=== PATIENT | female | born 1995 | race African-American/Black ===

== ENCOUNTER 2020-08-05 16:01 | Emergency (ER) | payer BC, OTHER ==
[~2020-08-05] VITALS: Ht 165.1 cm; Wt 113.4 kg
[2020-08-05 17:05] LABS: BILIRUBIN,URINE NEGATIVE (NEGATIVE); CLARITY,URINE CLEAR (CLEAR); COLOR,URINE YELLOW (YELLOW); KETONES,URINE NEGATIVE (NEGATIVE); LEUKOCYTE ESTERASE ,URINE NEGATIVE (NEGATIVE); NITRITE,URINE NEGATIVE (NEGATIVE); PROTEIN,URINE DIPSTICK NEGATIVE (NEGATIVE); URINE UROBILINOGEN 0.2 mg/dL (0.2 - 1)
[2020-08-05 17:17] LABS: BACTERIA,URINE RARE /HPF; EPITHELIAL CELLS,URINE MODERATE /LPF
[2020-08-05 17:55] LABS: BASOPHILS % 0.1 % (0.0-1.0); EOSINOPHILS # (AUTO) 0.1 (0.0-0.4); EOSINOPHILS % 0.9 % (0.0-6.0); HEMATOCRIT 37.8 % (34.2-44.1); HEMOGLOBIN 12.4 g/dL (12.0-16.0); LYMPHOCYTES # (AUTO) 2.4 (1.0-3.2); LYMPHOCYTES % 30.7 % (18.0-39.1); MEAN CORPUSCULAR HEMOGLOBIN 25.7 pg (28-32); MEAN CORPUSCULAR HGB CONC 32.8 g/dL (31-35); MEAN CORPUSCULAR VOLUME 78.4 fL (81-99); MONOCYTES % 12.2 % (4.4-11.3); NEUTROPHILS # (AUTO) 4.4 (2.1-6.9); NEUTROPHILS % 55.8 % (38.7-80.0); PLATELET COUNT 305 x10e3/uL (140-360); RED BLOOD COUNT 4.82 x10e6/uL (3.6-5.1); RED CELL DISTRIBUTION WIDTH 14.6 % (11.7-14.4)
[2020-08-05 18:12] LABS: ANION GAP 12.8 mmol/L (8-16); BLOOD UREA NITROGEN < 5 mg/dL (7-26); BUN/CREATININE RATIO 7 (6-25); CALCIUM 9.4 mg/dL (8.4-10.2); CARBON DIOXIDE 21 mmol/L (22-29); CHLORIDE 105 mmol/L (98-107); CREATININE, SERUM 0.72 mg/dL (0.57-1.11); EST GLOMERULAR FILTRATION RATE > 60 ML/MIN (60-); GLUCOSE 70 mg/dL (74-118); POTASSIUM 3.8 mmol/L (3.5-5.1); SODIUM 135 mmol/L (136-145)
--- NOTE | 2020-08-05 19:04 | Diagnostic Imaging Report ---
EXAM: Obstetric Pelvic Ultrasound INDICATION: Pelvic pain COMPARISON: None TECHNIQUE: Transabdominal and transvaginal evaluation of the pelvis was performed in the transverse and longitudinal planes. CLINICAL HISTORY: 24 year old G1, P0; last menstrual period: 05/01/2020 FINDINGS: Uterus: Orientation: Normal Size: 13.6 x 7.2 x 9.8 cm, gravid Mass: None Cervix: Normal Gestational Sac: Location: Intrauterine Appearance: Normal in contour Subchorionic hemorrhage: None Embryo/Fetus: [place] rump length: 6.6 cm Estimated sonographic GA: 13 weeks, 0 days Cardiac activity: 161 bpm Right ovary: Not visualized. Left ovary: Not visualized. Cul-de-sac: No free fluid IMPRESSION: Viable intrauterine with gestational age 13 weeks, 0 days by CRL and documented heart rate of 161 BPM.. Signed by: Dr. Silvino Burris M.D. on 08/05/2020 7:01 PM
--- NOTE | 2020-08-05 19:25 | Emergency Department Note ---
History of Present Illnes History of Present Illness Chief Complaint: Genitourinary History of Present Illness This is a 24 year old female N FROM HOME WITH COMPLAINTS OF LOWER ABDOMINAL PAIN AND CRAMPING X 4 DAYS; STATES IT IS WORSE WHEN SHE URINATES. PATIENT RATES PAIN 9/10. PATIENT ALERT AND ORIENTED, RESP EVEN AND NONLABORED, APPEARS IN NO DISTRESS, AMBULATORY WITHOUT ASSISTANCE, DENIES VAGINAL BLEEDING OR DISCHARGE, LMP 05/01/2020. Historian: Patient Arrival Mode: Car Onset (how long ago): day(s) (4) Past Medical/Family History Physician Review I have reviewed the patient's past medical and family history. Any updates have been documented here. Past Medical History Recent Fever: No Clinical Suspicion of Infectio: No New/Unexplained Change in Ment: No Past Medical History: None Past Surgical History: None Social History Smoking Cessation: Never Smoker Alcohol Use: None Any Illegal Drug Use: No Family History Family history of heart diseas: No Review of Systems Review of Systems Constitutional: Reports no symptoms EENTM: Reports no symptoms Cardiovascular: Reports no symptoms Respiratory: Reports no symptoms Gastrointestinal: Reports as per HPI Genitourinary: Reports no symptoms Musculoskeletal: Reports no symptoms Integumentary: Reports no symptoms Neurological: Reports no symptoms Psychological: Reports no symptoms Endocrine: Reports no symptoms Hematological/Lymphatic: Reports no symptoms Physical Exam Related Data Allergies: Coded Allergies: No Known Allergies (Unverified , 08/05/20) Triage Vital Signs Vital Signs Date Time Temp Pulse Resp B/P (MAP) Pulse Ox O2 Delivery O2 Flow Rate FiO2 08/05/20 16:27 99.3 91 16 117/58 100 Room Air Vital signs reviewed: Yes Physical Exam CONSTITUTIONAL Constitutional: Present well-developed, Present well-nourished; Absent distressed HENT HENT: Present normocephalic, Present atraumatic, Present oropharynx clear/moist, Present nose normal HENT L/R: Present left ext ear normal, Present right ext ear normal EYES Eyes: Reports PERRL, Reports conjunctivae normal NECK Neck: Present ROM normal PULMONARY Pulmonary: Present effort normal, Present breath sounds normal CARDIOVASCULAR Cardiovascular: Present regular rhythm, Present heart sounds normal, Present capillary refill normal, Present normal rate GASTROINTESTINAL Abdominal: Present soft, Present nontender, Present bowel sounds normal GENITOURINARY Genitourinary: Present exam deferred SKIN Skin: Present warm, Present dry MUSCULOSKELETAL Musculoskeletal: Present ROM normal NEUROLOGICAL Neurological: Present alert, Present oriented x 3, Present no gross motor or sensory deficits PSYCHOLOGICAL Psychological: Present mood/affect normal, Present judgement normal Results Laboratory Result Diagram: 08/05/20 1745 08/05/20 1745 Laboratory Laboratory Tests Test 08/05/20 17:45 08/05/20 16:34 White Blood Count 7.81 x10e3/uL (4.8-10.8) Red Blood Count 4.82 x10e6/uL (3.6-5.1) Hemoglobin 12.4 g/dL (12.0-16.0) Hematocrit 37.8 % (34.2-44.1) Mean Corpuscular Volume 78.4 fL (81-99) Mean Corpuscular Hemoglobin 25.7 pg (28-32) Mean Corpuscular Hemoglobin Concent 32.8 g/dL (31-35) Red Cell Distribution Width 14.6 % (11.7-14.4) Platelet Count 305 x10e3/uL (140-360) Neutrophils (%) (Auto) 55.8 % (38.7-80.0) Lymphocytes (%) (Auto) 30.7 % (18.0-39.1) Monocytes (%) (Auto) 12.2 % (4.4-11.3) Eosinophils (%) (Auto) 0.9 % (0.0-6.0) Basophils (%) (Auto) 0.1 % (0.0-1.0) Neutrophils # (Auto) 4.4 (2.1-6.9) Lymphocytes # (Auto) 2.4 (1.0-3.2) Monocytes # (Auto) 1.0 (0.2-0.8) Eosinophils # (Auto) 0.1 (0.0-0.4) Basophils # (Auto) 0.0 (0.0-0.1) Absolute Immature Granulocyte (auto 0.02 x10e3/uL (0-0.1) Sodium Level 135 mmol/L (136-145) Potassium Level 3.8 mmol/L (3.5-5.1) Chloride Level 105 mmol/L (98-107) Carbon Dioxide Level 21 mmol/L (22-29) Anion Gap 12.8 mmol/L (8-16) Blood Urea Nitrogen < 5 mg/dL (7-26) Creatinine 0.72 mg/dL (0.57-1.11) Estimat Glomerular Filtration Rate > 60 ML/MIN (60-) BUN/Creatinine Ratio 7 (6-25) Glucose Level 70 mg/dL (74-118) Calcium Level 9.4 mg/dL (8.4-10.2) Human Chorionic Gonadotropin, Quant 80707.02 mIU/mL (0-10) Urine Color Yellow (YELLOW) Urine Clarity Clear (CLEAR) Urine pH 5.5 (5 - 7) Urine Specific [place] 1.010 (1.010-1.025) Urine Protein Negative (NEGATIVE) Urine Glucose (UA) Negative (NEGATIVE) Urine Ketones Negative (NEGATIVE) Urine Blood Negative (NEGATIVE) Urine Nitrite Negative (NEGATIVE) Urine Bilirubin Negative (NEGATIVE) Urine Urobilinogen 0.2 mg/dL (0.2 - 1) Urine Leukocyte Esterase Negative (NEGATIVE) Urine RBC None /HPF (0-5) Urine WBC None /HPF (0-5) Urine Epithelial Cells Moderate /LPF (NONE) Urine Bacteria Rare /HPF (NONE) Lab results reviewed: Yes Imaging Impressions Patient Name: ABILIO LYNN MR #: [id number] : 1995 Age/Sex: 24/F Req #: [id number] Adm Physician: Ordered by: JOSE MACIAS DO Report #: [id number] Location: ER Room/Bed: Procedure: [id number] US/US OB 1st TRIM SINGLE GEST Exam Date: 08/05/20 Exam Time: 1806 REPORT STATUS: Signed EXAM: Obstetric Pelvic Ultrasound INDICATION: Pelvic pain COMPARISON: None TECHNIQUE: Transabdominal and transvaginal evaluation of the pelvis was performed in the transverse and longitudinal planes. CLINICAL HISTORY: 24 year old G1, P0; last menstrual period: 05/01/2020 FINDINGS: Uterus: Orientation: Normal Size: 13.6 x 7.2 x 9.8 cm, gravid Mass: None Cervix: Normal Gestational Sac: Location: Intrauterine Appearance: Normal in contour Subchorionic hemorrhage: None Embryo/Fetus: [place] rump length: 6.6 cm Estimated sonographic GA: 13 weeks, 0 days Cardiac activity: 161 bpm Right ovary: Not visualized. Left ovary: Not visualized. Cul-de-sac: No free fluid IMPRESSION: Viable intrauterine with gestational age 13 weeks, 0 days by CRL and documented heart rate of 161 BPM.. Signed by: Dr. Janessa Burris M.D. on 08/05/2020 7:01 PM Dictated By: JANESSA BURRIS MD 00 Transcribed By: LUCY on 08/05/201900 COPY TO: JOSE MACIAS, ~ Assessment & Plan Medical Decision Making MDM PT WITH INTERMITTENT PELVIC CRAMPING FOR 4 DAYS UA, PELVIC US ORDERED TO EVAL FOR UTI, VIABLE IUP Assessment & Plan Final Impression: (1) Discomfort during Depart Disposition: HOME, SELF-CARE Last Vital Signs Date Time Temp Pulse Resp B/P (MAP) Pulse Ox O2 Delivery O2 Flow Rate FiO2 08/05/20 16:27 99.3 91 16 117/58 100 Room Air RACHAEL ABAD MD Aug 05, 2020 19:25
--- OUTSIDE RECORDS SUMMARY | 2020-08-06 10:32 | XMS REPORT | Continuity of Care Document ---
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 Role Phone [employer] Unavailable Un available Problems Problem Status Onset Date Classification Date Reported Comments Source DR NOLAND Active 06/22/2020 [facility] Abnormal uterine and vaginal bleeding, unspecified 07/05/2018 01/22/2019 [facility] Urinary tract infection, site not specified 07/05/2018 01/22/2019 [facility] ABD PAIN/ VAGINAL BLEED Active 07/04/2018 [facility] Other specified postprocedural states 01/22/2019 [facility] Medications Medication Details Route Status Patient Instructions Ordering Provider Order Date Source Nitrofurantoin 100 MG Oral Capsule [Macrobid] 100 mg = 1 cap, PO, BID, X 5 day, # 10 cap, 0 Refill(s) No Longer Active 07/05/2018 [facility] Ketoprofen 75 MG Oral Capsule 75 mg = 1 cap, PO, Q8H, PRN Pain, # 15 cap, 0 Refill(s) Active 07/05/2018 [facility] Allergies, Adverse Reactions, Alerts No Known Medication Allergies Immunizations No Data Provided for This Section Results Order Name Results Value Reference Range Date Interpretation Comments Source CHEM PANEL B/C Ratio 8 6 - 25 07/05/2018 [facility] CHEM PANEL AGAP 13.8 10.0 - 20.0 07/05/2018 [facility] CHEM PANEL A/G Ratio 0.9 0.7 - 1.6 07/05/2018 [facility] CHEM PANEL Globulin 4.1 2.7 - 4.2 07/05/2018 [facility] CHEM PANEL eGFR 114 07/05/2018 Result Comment: The eGFR is calculated using the CKD-EPI formula. In most young, healthy individuals the eGFR will be >90 mL/min/1.73m2. The eGFR declines with age. An eGFR of 60-89 may be normal in some populations, particularly the elderly, for whom the CKD-EPI formula has not been extensively validated. Use of the eGFR is not recommended in the following populations:

Individuals with unstable creatinine concentrations, including patients and those with serious co-morbid conditions.

Patients with extremes in muscle mass or diet.

The data above are obtained from the National Kidney Disease Education Program (NKDEP) which additionally recommends that when the eGFR is used in patients with extremes of body mass index for purposes of drug dosing, the eGFR should be multiplied by the estimated BMI. [facility] CHEM PANEL Albumin Lvl 3.7 3.5 - 5.0 07/05/2018 [facility] CHEM PANEL Total Protein 7.8 6.4 - 8.4 07/05/2018 [facility] CHEM PANEL AST 17 0 - 37 07/05/2018 [facility] CHEM PANEL ALT 21 0 - 65 07/05/2018 [facility] CHEM PANEL Alk Phos 75 39 - 136 07/05/2018 [facility] CHEM PANEL Bili Total 0.4 0.2 - 1.3 07/05/2018 [facility] CHEM PANEL Glucose Lvl 101 70 - 99 07/05/2018 [facility] CHEM PANEL Creatinine Lvl 0.85 0.50 - 1.40 07/05/2018 [facility] CHEM PANEL Potassium Lvl 3.8 3.5 - 5.1 07/05/2018 [facility] CHEM PANEL Sodium Lvl 140 135 - 145 07/05/2018 [facility] CHEM PANEL CO2 25 24 - 32 07/05/2018 [facility] CHEM PANEL Chloride Lvl 105 95 - 109 07/05/2018 [facility] CHEM PANEL BUN 7 7 - 22 07/05/2018 [facility] CHEM PANEL Calcium Lvl 8.9 8.5 - 10.5 07/05/2018 [facility] HEMATOLOGY Lymphocytes # 2.3 1.0 - 5.5 07/05/2018 [facility] HEMATOLOGY Neutrophils # 5.4 1.5 - 8.1 07/05/2018 [facility] HEMATOLOGY Monocytes # 0.6 0.0 - 0.8 07/05/2018 [facility] HEMATOLOGY Lymphocytes 27.9 20.0 - 40.0 07/05/2018 [facility] HEMATOLOGY Segs 64.3 45.0 - 75.0 07/05/2018 [facility] HEMATOLOGY Basophils 0.4 0.0 - 1.0 07/05/2018 [facility] HEMATOLOGY Eosinophils 0.5 0.0 - 4.0 07/05/2018 [facility] HEMATOLOGY Monocytes 6.9 2.0 - 12.0 07/05/2018 [facility] HEMATOLOGY WBC 8.3 3.7 - 10.4 07/05/2018 [facility] HEMATOLOGY RBC 4.74 4.20 - 5.40 07/05/2018 [facility] HEMATOLOGY Hct 37.5 36.0 - 48.0 07/05/2018 [facility] Hgb 12.2 12.0 - 16.0 07/05/2018 [facility] MCH 25.7 27.0 - 31.0 07/05/2018 [facility] MCV 79.0 80.0 - 98.0 07/05/2018 [facility] MCHC 32.5 32.0 - 36.0 07/05/2018 [facility] RDW 14.7 11.5 - 14.5 07/05/2018 [facility] Platelet 297 133 - 450 07/05/2018 [facility] MPV 8.6 7.4 - 10.4 07/05/2018 [facility] URINE AND STOOL UA Urobilinogen <=1.0 mg/dL 0.1 - 1.0 07/05/2018 [facility] URINE AND STOOL UA Color Ltyellow 07/05/2018 [facility] URINE AND STOOL UA Ketones Negative mg/dL Negative mg/dL 07/05/2018 [facility] URINE AND STOOL UA Nitrite Negative (07/04/18 11:33 PM) Negative 07/05/2018 [facility] URINE AND STOOL UA Blood Large *ABN* (07/04/18 11:33 PM) Negative 07/05/2018 [facility] URINE AND STOOL UA Bili Negative *NA* (07/04/18 11:33 PM) Negative 07/05/2018 [facility] URINE AND STOOL UA Leuk Est Moderate *ABN* (07/04/18 11:33 PM) Negative 07/05/2018 [facility] URINE AND STOOL UA Spec Grav 1.010 <=1.030 07/05/2018 [facility] URINE AND STOOL UA Turbidity Clear (07/04/18 11:33 PM) Clear 07/05/2018 [facility] URINE AND STOOL UA Glucose Negative mg/dL Negative mg/dL 07/05/[address] [facility] URINE AND STOOL UA Protein Negative mg/dL Negative mg/dL 07/05/[address] [facility] URINE AND STOOL UA pH 6.0 5.0 - 8.0 07/05/2018 [facility] URINE AND STOOL UA Sq Epi Occasional /LPF Few /LPF 07/05/2018 [facility] URINE AND STOOL UA Bacteria Occasional /HPF None Seen /HPF 07/05/2018 [facility] URINE AND STOOL UA RBC 13 0 - 2 07/05/2018 [facility] URINE AND STOOL UA WBC 20 0 - 5 07/05/2018 [facility] URINE CHEM U Preg Negat juan m (07/04/18 11:33 PM) Negative 07/05/2018 [facility] Culture: Urine No Growth 07/05/2018 [facility] Pathology Reports No Data Provided for This Section Diagnostic Reports Report Value Date Source < 14 weeks single gestation US PROCEDURE INFORMATION: Exam: US , Transvaginal Exam date and time: 06/22/2020 9:33 PM Age: 24 years old Clinical indication: complicated by abdominal or pelvic pain; Left lower quadrant; Additional info: Vaginal bleeding/pelvic pain 7 wks preg TECHNIQUE: Imaging protocol: Real-time transvaginal obstetrical ultrasound of the maternal pelvis and a first trimester with image documentation. Transvaginal imaging was used for better evaluation of the fetus and adnexa. COMPARISON: No relevant prior studies available. FINDINGS: Gestation: Single live intrauterine is seen with crown-rump length measuring 0.6 cm. Sonographic gestational age is 6 weeks and 6 days. Gestational age by LMP is 7 weeks and 3 days. heart rate measures 123 bpm. No subchorionic hemorrhage. MATERNAL: Uterus: Uterus is slightly heterogeneous measuring 11 x 6.1 x 6.9 cm. Heterogeneous probable fibroid is seen in the posterior wall measuring 5.8 cm. Right adnexa: Right ovary measures 5.6 x 3.7 x 4.2 cm with small corpus luteum cyst. Left adnexa: Normal left ovary measures 3.9 x 3 x 1.7 cm. Intraperitoneal space: Trace pelvic free fluid. IMPRESSION: Single live intrauterine with crown-rump length measuring 0.6 cm. Sonographic gestational age is 6 weeks and 6 days. 5.8 cm probable uterine fibroid. Mariajose Montoya MD On 06/22/2020 22:14:42; [id number] 06/22/2020 [facility] Consultation Notes No Data Provided for This Section Discharge Summaries No Data Provided for This Section History and Physicals No Data Provided for This Section Vital Signs Vital Sign Value Date Comments Source Respitory Rate 16 07/05/2018 [facility] Systolic (mm Hg) 128 07/05/2018 [facility] Diastolic (mm Hg) 84 07/05/2018 [facility] Temperature Oral (F) 98.0 F 07/05/2018 [facility] Heart Rate 76 07/05/2018 [facility] BMI Calculated 42.54 07/05/2018 [facility] Weight 119.545 07/05/2018 [facility] Height 167.64 cm 07/05/2018 [facility] Respitory Rate 19 07/05/2018 [facility] Heart Rate 90 07/05/2018 [facility] Temperature Oral (F) 98.1 F 07/05/2018 [facility] Systolic (mm Hg) 134 07/05/2018 [facility] Diastolic (mm Hg) 84 07/05/2018 [facility] Encounters Location Location Details Encounter Type Encounter Number Reason For Visit Attending Provider ADM Date DC Date Status Source [facility] Emergency [id number] Kari Olsonqi 07/05/2018 07/05/2018 [facility] Procedures No Data Provided for This Section Assessment and Plan No Data Provided for This Section Plan of Care No Data Provided for This Section Social History Social History Date Source Social History TypeResponse Smoking Status Never smoker; Exposure to Tobacco Smoke None; Cigarette Smoking Last 365 Days No; Reg Smoking Cessation Counseling No entered on: 07/04/18 07/05/2018 [facility] Family History No Data Provided for This Section Advance Directives No Data Provided for This Section Functional Status No Data Provided for This Section
--- OUTSIDE RECORDS SUMMARY | 2020-08-06 10:32 | XMS REPORT | Continuity of Care Document ---
Author Author [facility] t Organization [facility] Address [address] [place] [address] Phone Unavailable Care Team Providers Care Licensed Clinician Name Role Phone NONSTAFF PCP Unavailable COLLEEN S JOSE Attphys Unavailable Lab/Pedi, [facility]Rmchp Attphys Unavailable 1, Us Room [facility]Mfm Attphys Unavailable Doctor Unassigned, Name No Attphys Unavailable Edward Galloway Attphys Risk, Provider/High [facility] Attphys Unavailabl e Nick Banks Attphys Payers Payer Name Policy Type Policy Number Effective Date Expiration Date S elizabeth [employer] [place] Ppo [id number] [facility] Community Health Choice [id number] [facility] Problems Condition Name Condition Details Condition Category Status Onset Date Resolution Date Last Treatment Date Treating Clinician Comments Source DR NUZHAT BANKS Active 06/22/2020 [facility] Active 2020-06-22 00:00:00 2020-08-03 15:07:00 Michelle Le ABD PAIN/ VAGINAL BLEED ABD PAIN/ VAGINAL BLEED Active 07/04/2018 [facility] Active 2018-07-04 00:00:00 2018-07-10 15:08:00 Michelle Le Discomfort during Problem Active [facility] Other specified postprocedural states Other specified postprocedural states 01/22/2019 [facility] Problem 2019-01-22 15:21:21 Michelle Le Abnormal uterine and vaginal bleeding, unspecified Abnormal uterine and vaginal bleeding, unspecified 07/05/2018 01/22/2019 [facility] Problem 2018-07-05 05:00:00 2019-01-22 15:21:21 2019-01 15:21:21 Michelle Le Urinary tract infection, site not specified Urinary tract infection, site not specified 07/05/2018 01/22/2019 [facility] Problem 2018-07-05 05:00:00 2019-01-22 15:21:21 2019-01-22 15:21:21 Michelle Le Allergies, Adverse Reactions, Alerts This patient has no known allergies or adverse reactions. Social History Social Habit Start Date Stop Date Quantity Comments Source Sex Assigned At 1995 00:00:00 1995 00:00:00 Female [facility] Smoking Status Start Date Stop Date Source Social History Michelle Le Medications Ordered Medication Name Filled Medication Name Start Date Stop Da te Current Medication? Ordering Clinician Indication Dosage Frequency Signature (SIG) Comments Components Source Nitrofurantoin 100 MG Oral Capsule [Macrobid] 2018-07-05 06:26:0 0 No 100 mg = 1 cap, PO, BID, X 5 day, # 10 cap, 0 Refill(s) Michelle Le Ketoprofen 75 MG Oral Capsule 2018-07-05 06:26:00 Yes 75 mg = 1 cap, PO, Q8H, PRN Pain, # 15 cap, 0 Refill(s) Michelle Le Vital Signs Vital Name Observation Time Observation Value Comments Source Weight 2020-08-05 16:27:00 250 [lb_av] [facility] BMI (Body Mass Index) 2020-08-05 16:27:00 41.6 kg/m2 [facility] Respitory Rate 2018-07-05 06:41:00 Colby al [place] Systolic (mm Hg) 2018-07-05 06:41:00 Erick Le Diastolic (mm Hg) 2018-07-05 06:41:00 Lilian Le Temperature Oral (F) 2018-07-05 06:41:00 98.0 F Michelle Le Heart Rate 2018-07-05 06:41:00 Michelle Le BMI Calculated 2018-07-05 02:43:00 [place] Weight 2018-07-05 02:43:00 [facility] [place] Height 2018-07-05 02:43:00 167.64 cm Michelle Le Respitory Rate 2018-07-05 02:43:00 [place] Heart Rate 2018-07-05 02:43:00 Michelle Le Temperature Oral (F) 2018-07-05 02:43:00 98.1 F Michelle Rey Systolic (mm Hg) 2018-07-05 02:43:00 Erick mcfarland [place] Diastolic (mm Hg) 2018-07-05 02:43:00 Mem orial [place] Procedures Procedure Date / Time Performed Performing Clinician Gabi vanessa Ultrasound of first trimester, single fetus 2020-08-05 00:00:00 [facility] Plan of Care Planned Activity Planned Date Details Comments Source Instructions [facility] Encounters Start Date/Time End Date/Time Encounter Type Admission Type [facility] Care Department Encounter ID Source 2020-08-05 17:50:00 2020-08-05 19:28:00 Departed Emergency Room 1 JOSE MACIAS [facility] [id number] [facility] 2020-07-27 14:29:38 2020-07-27 15:03:32 [facility] & CHILD [facility] [id number] 2020-07-27 13:57:55 2020-07-27 14:42:55 Integration Director Visit 1 [facility] Room [facility] CASH MANAGEMENT CLERK [facility] & CHILD [facility] [id number] 2020-07-21 00:00:00 2020-07-21 00:00:00 Orders Only D octor Unassigned, [place] [facility] [id number] 2020-07-08 00:00:00 2020-07-08 00:00:00 Telephone Ivis Siegel [facility] CASH MANAGEMENT CLERK [facility] CHILD [facility] [id number] 2020-07-06 15:56:23 2020-07-06 17:51:41 Routine Visit Risk, [facility] Provider/High [facility] CASH MANAGEMENT CLERK [facility] CHILD [facility] [id number] 2020-06-22 17:17:00 2020-06-22 17:17:00 Emergency E [facility] [address] [facility] 2018-07-04 21:20:00 2018-07-05 01:44:00 Outpatient Kari Banks [facility] [id number] Results Test Description Test Time Test Comments Results Result Comments Source US OB 1st TRIM SINGLE GEST 2020-08-05 18:58:00 [place] [address] Patient Name: ABILIO LYNN MR #: [id number] : 1995 Age/Sex: 24/F Req #: [id number] Adm Physician: Ordered by: JOSE MACIAS DO Report #: [id number] Location: ER Room/Bed: Procedure: [id number] US/US OB 1st TRIM SINGLE GEST Exam Date: 08/05/20 Exam Time: 180 REPORT STATUS: Signed EXAM: Obstetric Pelvic Ultrasound INDICATION: Pelvic pain COMPARISON: None TECHNIQUE: Transabdominal and transvaginal evaluation of the pelvis was performed in the transverse and longitudinal planes. CLINICAL HISTORY: 24 year old G1, P0; last menstrual period: 05/01/2020 FINDINGS: Uterus: Orientation: Normal Size: 13.6 x 7.2 x 9.8 cm, gravid Mass: None Cervix: Normal Gestational Sac: Location: Intrauterine Appearance: Normal in contour Subchorionic hemorrhage: None Embryo/Fetus: Valle rump length: 6.6 cm Estimated sonographic GA: 13 weeks, 0 days Cardiac activity: 161 bpm Right ovary: Not visualized. Left ovary: Not visualized. Cul-de-sac: No free fluid IMPRESSION: Viable intrauterine with gestational age 13 weeks, 0 days by CRL and documented heart rate of 161 BPM.. Signed by: Dr. Silvino Burris M.D. on 08/05/2020 7:01 PM Dictated By: SILVINO BURRIS MD 00 Transcribed By: LUCY on 08/05/201900 COPY TO: JOSE MACIAS DO Blood leukocytes automated count (number/volume) 2020-08-05 17:45:00 Test Item White Blood Count (test code = 6690-2) 7.81 4.8-10.8 [facility] erythrocytes automated count (number/volume)2020-08-05 17:45:00* Test Item Value Reference Range Interpretation Comments Red Blood Count (test code = 789-8) 4.82 3.6-5.1 [facility] hemoglobin measurement (moles/volume)2020-08-05 17:45:00* Test Item Value Reference Range Interpretation Comments Hemoglobin (test code = 30597-3) 12.4 12.0-16.0 [facility] CenterAutomated blood hematocrit (volume fraction)2020-08-05 17:45:00* Test Item Value Reference Range Interpretation Comments Hematocrit (test code = 4544-3) 37.8 34.2-44.1 [facility] CenterAutomated erythrocyte mean corpuscular fszcqe3076-29-54 17:45:00* Test Item Value Reference Range Interpretation Comments Mean Corpuscular Volume (test code = 787-2) 78.4 81-99 [facility] CenterAutomated erythrocyte mean corpuscular hemoglobin (mass per erythrocyte)2020-08-05 17:45:00* Test Item Value Reference Range Interpretation Comments Mean Corpuscular Hemoglobin (test code = 785-6) 25.7 28-32 [facility] CenterAutomated erythrocyte mean corpuscular hemoglobin concentration measurement (mass/volume)2020-08-05 17:45:00* Test Item Value Reference Range Interpretation Comments Mean Corpuscular Hemoglobin Concent (test code = 786-4) 32.8 31-35 [facility] CenterRDW TqpLn-Uvp8480-42-17 17:45:00* Test Item Value Reference Range Interpretation Comments Red Cell Distribution Width (test code = 09117-2) 14.6 11.7 -14.4 [facility] CenterAutomated blood platelet count (count/volume)2020-08-05 17:45:00* Test Item Value Reference Range Interpretation Comments Platelet Count (test code = 777-3) 305 140-360 [facility] CenterAutcentral [facility] hospitaled blood segmented neutrophil count as percentage of total wiebfzfhiq1180-64-10 17:45:00* Test Item Value Reference Range Interpretation Comments Neutrophils (%) (Auto) (test code = 00921-1) 55.8 38.7-80.0 [facility] CenterAutomated blood lymphocyte count as percentage ot total mohizxryau8156-65-41 17:45:00* Test Item Value Reference Range Interpretation Comments Lymphocytes (%) (Auto) (test code = 736-9) 30.7 18.0-39.1 [facility] CenterAutomated blood monocyte count as percentage of total idlvjhlkxu0931-66-23 17:45:00* Test Item Value Reference Range Interpretation Comments Monocytes (%) (Auto) (test code = 5905-5) 12.2 4.4-11.3 [facility] CenterAutomated blood eosinophil count as percentage of total awujjmuzha4696-08-51 17:45:00* Test Item Value Reference Range Interpretation Comments Eosinophils (%) (Auto) (test code = 713-8) 0.9 0.0-6.0 [facility] CenterAutomated blood basophil count as percentage of total puwjsgothn8334-31-17 17:45:00* Test Item Value Reference Range Interpretation Comments Basophils (%) (Auto) (test code = 706-2) 0.1 0.0-1.0 [facility] CenterFluoroscopic procedure less than one hour nrjofyyg4911-05-82 17:45:00* Test Item Value Reference Range Interpretation Comments IM GRANULOCYTES % (test code = IM GRANULOCYTES %) 0.3 0.0- 1.0 [facility] CenterAutomated blood neutrophil count 2020-08-05 17:45:00* Test Item Value Reference Range Interpretation Comments Neutrophils # (Auto) (test code = 751-8) 4.4 2.1-6.9 [facility] CenterBlood lymphocytes count (number/volume) 2020-08-05 17:45:00* Test Item Value Reference Range Interpretation Comments Lymphocytes # (Auto) (test code = 67398-6) 2.4 1.0-3.2 [facility] CenterBlood monocytes automated count (number/volume)2020-08-05 17:45:00* Test Item Value Reference Range Interpretation Comments Monocytes # (Auto) (test code = 742-7) 1.0 0.2-0.8 [facility] CenterAutomated blood eosinophil count 2020-08-05 17:45:00* Test Item Value Reference Range Interpretation Comments Eosinophils # (Auto) (test code = 711-2) 0.1 0.0-0.4 [facility] CenterAutomated blood basophil count (count/volume)2020-08-05 17:45:00* Test Item Value Reference Range Interpretation Comments Basophils # (Auto) (test code = 704-7) 0.0 0.0-0.1 [facility] CenterFluoroscopic procedure less than one hour esuxstrl6609-33-92 17:45:00* Test Item Value Reference Range Interpretation Comments Absolute Immature Granulocyte (auto (jose t code = Absolute Immature Granulocyte (auto) 0.02 0-0.1 [facility] or plasma sodium measurement (moles/volume)2020-08-05 17:45:00* Test Item Value Reference Range Interpretation Comments Sodium Level (test code = 2951-2) 135 136-145 [facility] Hospitalerum or plasma potassium measurement (moles/volume)2020-08-05 17:45:00* Test Item Value Reference Range Interpretation Comments Potassium Level (test code = 2823-3) 3.8 3.5-5.1 [facility] Hospitalerum or plasma chloride measurement (moles/volume)2020-08-05 17:45:00* Test Item Value Reference Range Interpretation Comments Chloride Level (test code = 2075-0) 105 98-107 [facility] Hospitalerum or plasma carbon dioxide, total measurement (moles/volume)2020-08-05 17:45:00* Test Item Value Reference Range Interpretation Comments Carbon Dioxide Level (test code = 2028-9) 21 22-29 [facility] Hospitalerum or plasma anion zyp4974-55-58 17:45:00* Test Item Value Reference Range Interpretation Comments Anion Gap (test code = 56269-2) 12.8 8-16 [facility] Hospitalerum or plasma urea nitrogen measurement (mass/volume)2020-08-05 17:45:00* Test Item Value Reference Range Interpretation Comments Blood Urea Nitrogen (test code = 3094-0) < 5 7-26 [facility] Hospitalerum or plasma creatinine measurement (mass/volume)2020-08-05 17:45:00* Test Item Value Reference Range Interpretation Comments Creatinine (test code = 2160-0) 0.72 0.57-1.11 [facility] Hospitalerum or plasma urea nitrogen/creatinine mass uvfaw7956-42-92 17:45:00* Test Item Value Reference Range Interpretation Comments BUN/Creatinine Ratio (test code = 3097-3) 7 6-25 [facility] CenterEstimated glomerular filtration rate (GFR) hqvyvojeevruh6089-90-25 17:45:00* Test Item Value Reference Range Interpretation Comments Estimat Glomerular Filtration Rate (test code = 390333304) > 60 >60 Ranges were taken from the National Kidney Disease Education Program and the [facility] [employer] literature.Reference ranges:60 or greater: Ixqrnb01-36 ( for 3 consecutive months): Chronic kidney disease 15 or less: Kidney failureHendrick Medical CenterGlucose pwnetudbgzx1278-65-14 17:45:00* Test Item Value Reference Range Interpretation Comments Glucose Level (test code = EEK4985) 70 74-118 [facility] Hospitalerum or plasma calcium measurement (mass/volume)2020-08-05 17:45:00* Test Item Value Reference Range Interpretation Comments Calcium Level (test code = 69252-9) 9.4 8.4-10.2 [facility] Hospitalerum or plasma chorionic gonadotropin measurement (mass/volume)2020-08-05 17:45:00* Test Item Value Reference Range Interpretation Comments Human Chorionic Gonadotropin, Quant (test code = 15050-5) 24573.02 0-10 [facility] CenterUrine color lwrcphimygmod1912-53-50 16:34:00* Test Item Value Reference Range Interpretation Comments Urine Color (test code = 5778-6) YELLOW YELLOW [facility] CenterUrine zaibshe6710-56-39 16:34:00* Test Item Value Reference Range Interpretation Comments Urine Clarity (test code = 34430-7) CLEAR CLEAR [facility] Hospitalpecific gravity of Urine by Test strip 2020-08-05 16:34:00* Test Item Value Reference Range Interpretation Comments Urine Specific [place] (test code = 5811-5) 1.010 1.010-1.02 5 [facility] CenterUrine pH measurement by automated test vusia9555-81-73 16:34:00* Test Item Value Reference Range Interpretation Comments Urine pH (test code = 31160-2) 5.5 5-7 [facility] CenterUrine leukocyte esterase detection by yfaadhsf3569-01-26 16:34:00* Test Item Value Reference Range Interpretation Comments Urine Leukocyte Esterase (test code = 5799-2) NEGATIVE NEGATIVE [facility] CenterUrine nitrite xmkkyanuc7662-07-27 16:34:00* Test Item Value Reference Range Interpretation Comments Urine Nitrite (test code = 05463-3) NEGATIVE NEGATIVE [facility] CenterUrine protein measurement by test strip (mass/volume)2020-08-05 16:34:00* Test Item Value Reference Range Interpretation Comments Urine Protein (test code = 5804-0) NEGATIVE NEGATIVE [facility] CenterUrine glucose miuuxszid0208-36-27 16:34:00* Test Item Value Reference Range Interpretation Comments Urine Glucose (UA) (test code = 2349-9) NEGATIVE NEGATIVE [facility] CenterUrine ketones detection by automated test gnbgi9531-30-81 16:34:00* Test Item Value Reference Range Interpretation Comments Urine Ketones (test code = 83248-7) NEGATIVE NEGATIVE [facility] CenterUrine urobilinogen measurement by test strip (mass/volume)2020-08-05 16:34:00* Test Item Value Reference Range Interpretation Comments Urine Urobilinogen (test code = 74791-1) 0.2 0.2-1 [facility] CenterUrine total bilirubin measurement (mass/volume)2020-08-05 16:34:00* Test Item Value Reference Range Interpretation Comments Urine Bilirubin (test code = 1978-6) NEGATIVE NEGATIVE [facility] CenterUrine erythrocytes kbpxnglfl2474-97-01 16:34:00* Test Item Value Reference Range Interpretation Comments Urine Blood (test code = 94226-0) NEGATIVE NEGATIVE [facility] CenterAutomated urine sediment leukocyte count by microscopy (number/high power field)2020-08-05 16:34:00* Test Item Value Reference Range Interpretation Comments Urine WBC (test code = 5821-4) NONE 0-5 [facility] CenterErythrocytes detection in urine sediment by light djoieanoot0875-66-85 16:34:00* Test Item Value Reference Range Interpretation Comments Urine RBC (test code = 38964-8) NONE 0-5 [facility] CenterBacteria detection in urine sediment by light bdrzjgxxeo5601-66-20 16:34:00* Test Item Value Reference Range Interpretation Comments Urine Bacteria (test code = 46660-6) RARE NONE [facility] CenterEpithelial cells detection in urine sediment by light dscsdswdfk5353-53-44 16:34:00* Test Item Value Reference Range Interpretation Comments Urine Epithelial Cells (test code = 67737-1) MODERATE NONE [facility] TRGDV9733-50-62 04:33:00* Test Item Value Reference Range Interpretation Comments B/C Ratio (test code = B/C Ratio) 8 1 6-25 [facility] TQNFW8915-31-48 04:33:0013.8[facility]annCHEM PANEL 2018-07-05 04:33:00* Test Item Value Reference Range Interpretation Comments A/G Ratio (test code = A/G Ratio) 0.9 1 0.7-1.6 [facility]CHE[facility] ESIZC0077-35-19 04:33:004.1[facility]annCHEM PANEL 2018-07-05 04:33:13066Urqkjxhc HermannCHEM OUYFZ4209-29-98 04:33:003.7[facility]annCHE[facility] CNMWJ2082-90-15 04:33:007.8[facility]annCHEM WJMZO6133-13-68 04:33:0017[facility]annCHEM UKNOM9089-63-68 04:33:0021[facility]annCHEM MZZVG7975-28-23 04:33:0075[facility]annCHEM ETTJQ8620-71-21 04:33:000.4 [facility]annCHE[facility] IZNTB4141-22-29 04:33:01280Atooqops HermannCHEM PANEL 2018-07-05 04:33:000.85[facility]annCHEM KFDLQ9798-68-73 04:33:003.8[facility]annCHEM SBARW1038-95-80 04:33:38455Oddarfow HermannCHEM TPMKM3688-07-08 04:33:0025[facility]annCHEM UTIQP0755-35-67 04:33:99052Piaquthp HermannCHEM GLYAK4939-06-11 04:33:007[facility]annCHEM FAXSX3404-21-86 04:33:008.9 Memorial JwarwilSQZULUGPOD4051-73-99 04:33:002.3[facility]annHEMATOLOGY 2018-07-05 04:33:005.4[facility] ZhyqtbmTJWJVUVSNB0973-54-38 04:33:000.6[facility] ItmzymcNCWXRQWTNN7815-74-65 04:33:0027.9[facility] KskisvnBRLIBUSZPG9575-67-64 04:33:0064.3[facility] BxmraowBCVTCVWUEP1950-38-43 04:33:000.4[facility] [place] MHMMXAQKMX8113-84-03 04:33:000.5[facility] DjjbqguCTKTTCEASJ8335-67-17 04:33:006.9 Memorial LkrlbnkFXWDTFNBGJ0301-37-43 04:33:008.3[facility]annHEMATOLOGY 2018-07-05 04:33:004.74[facility] KhroaywJDWBORUXQY7610-91-04 04:33:0037.5[facility] OtyfoajVYNBZIBAWF0899-30-40 04:33:0012.2[facility] GjumfkaFUYWVTEBJC7378-50-95 04:33:00* Test Item Value Reference Range Interpretation Comments MCH (test code = [facility]) 25.7 pg 27.0-31.0 [facility] KrmqjtcLUCBYXWMBF6598-61-04 04:33:0079.0[facility]annHEMATOLOGY 2018-07-05 04:33:0032.5[facility] EosaaalMWNPOESNWT4998-79-73 04:33:0014.7[facility] BgqicbcISPAKAJQBP4517-92-04 04:33:19387Gfhrtznx LyxbihrJGOILHCTBO1929-41-54 04:33:008.6[facility]annURINE AND FPYAF5677-23-13 04:33:00Negative (07/04/18 11:33 PM)[facility] PVWAJ3452-37-30 04:33:00Large *ABN*(07/04/18 11:33 PM)[facility] MVTJW9542-69-37 04:33:00Negative *NA*(07/04/18 11:33 PM)[facility] OUECL1204-26-03 04:33:00Moderate *ABN*(07/04/18 11:33 PM)[facility] WNIRB7055-97-07 04:33:00* Test Item Value Reference Range Interpretation Comments UA Spec Grav (test code = UA Spec Grav) 1.010 1 [facility] OTPVF8232-75-38 04:33:00Clear (07/04/18 11:33 PM) [facility] POHZS7175-20-27 04:33:00* Test Item Value Reference Range Interpretation Comments UA pH (test code = UA pH) 6.0 1 5.0-8.0 [facility] RTAYT8414-29-76 04:33:0013[facility] AND UQQQN1766-17-25 04:33:0020[facility] GNVW0111-87-27 04:33:00Negative (07/04/18 11:33 PM)Michelle eL
== END 2020-08-05 19:28 | disposition home or self-care (01) ==
LOC: ER 17:50
DX: O26.91 Pregnancy related conditions, unspecified, first trimester (principal); R10.2 Pelvic and perineal pain
CPT/HCPCS: 36415; 76801; 80048; 81001; 84702; 85025; 99284

== ENCOUNTER 2022-02-27 21:43 | Emergency (ER) | payer BC, OTHER ==
[~2022-02-27] VITALS: Ht 167.6 cm; Wt 114.8 kg
[2022-02-27] MEDS ORDERED: SODIUM CHLORIDE 0.9% 1000ML 1,000 ML IV STA (22:10)
[2022-02-27] MEDS ORDERED: ACETAMINOPHEN 325 MG TAB PO ONE (22:15)
[2022-02-27] MEDS ORDERED: ONDANSETRON HCL INJ 2MG/ML 2ML 2 MG/ML VIAL IV PRN (22:15)
[2022-02-27 22:34] LABS: BASOPHILS % 0.3 % (0.0-1.0); EOSINOPHILS # (AUTO) 0.3 (0.0-0.4); HEMATOCRIT 35.9 % (34.2-44.1); HEMOGLOBIN 11.5 g/dL (12.0-16.0); LYMPHOCYTES # (AUTO) 1.1 (1.0-3.2); MEAN CORPUSCULAR HEMOGLOBIN 24.7 pg (28-32); MEAN CORPUSCULAR VOLUME 77.2 fL (81-99); MONOCYTES # (AUTO) 0.9 (0.2-0.8); MONOCYTES % 9.8 % (4.4-11.3); NEUTROPHILS % 74.5 % (38.7-80.0); PLATELET COUNT 295 x10e3/uL (140-360); RED BLOOD COUNT 4.65 x10e6/uL (3.6-5.1); RED CELL DISTRIBUTION WIDTH 15.2 % (11.7-14.4)
[2022-02-27 22:48] LABS: BACTERIA,URINE FEW /HPF; CLARITY,URINE CLEAR (CLEAR); COLOR,URINE YELLOW (YELLOW); EPITHELIAL CELLS,URINE FEW /LPF; KETONES,URINE NEGATIVE (NEGATIVE); LEUKOCYTE ESTERASE ,URINE NEGATIVE (NEGATIVE); NITRITE,URINE NEGATIVE (NEGATIVE); PROTEIN,URINE DIPSTICK NEGATIVE (NEGATIVE); RBC,URINE 0-5 /HPF (0-5); URINE UROBILINOGEN 0.2 mg/dL (0.2 - 1)
[2022-02-27 22:50] LABS: ALBUMIN 3.7 g/dL (3.5-5.0); ALBUMIN/GLOBULIN RATIO 0.9 (0.8-2.0); ANION GAP 11.6 mmol/L (8-16); CALCIUM 8.8 mg/dL (8.4-10.2); CREATININE, SERUM 0.74 mg/dL (0.57-1.11); POTASSIUM 3.6 mmol/L (3.5-5.1)
[2022-02-27 22:59] LABS: MUCUS,URINE MANY (RARE)
[2022-02-27] MEDS ORDERED: IOPAMIDOL 370 MG/ML 200 ML INFUS..BTL INJ ONE (23:19)
[2022-02-27] MEDS ORDERED: SODIUM CHLORIDE 0.9% 50ML 50 ML ONE (23:19)
[2022-02-28] MEDS ORDERED: CEPHALEXIN500 MG PO (00:11)
[2022-02-28] MEDS ORDERED: ONDANSETRON ODT4 MG PO (00:11)
[2022-02-28 00:26] VITALS: BP 114/60
== END 2022-02-28 00:28 | disposition home or self-care (01) ==
LOC: ER 22:31
DX: R50.9 Fever, unspecified (principal); N39.0 Urinary tract infection, site not specified; R11.2 Nausea with vomiting, unspecified; R10.33 Periumbilical pain
CPT/HCPCS: 36415; 74177; 80053; 81001; 83690; 84702; 85025; 99284; J2405; J7030; Q9967